=== PATIENT | female | born 1980 | race Hispanic/Latino ===

== ENCOUNTER → 2018-09-12 10:55 | Outpatient (CLI) | payer OTHER, MEDICAID, SELFPAY ==
[2018-09-12 12:52] LABS: HCG Quantitative /Beta subunit 488080 mIU/mL
== END ==
DX: O02.0 Blighted ovum and nonhydatidiform mole (principal)
CPT/HCPCS: 36415; 84702

== ENCOUNTER → 2018-09-27 14:30 | Outpatient (CLI) | payer OTHER, MEDICAID, SELFPAY ==
[2018-09-27 16:05] LABS: HCG Quantitative /Beta subunit 1195.5 mIU/mL
== END ==
PROVIDERS: Visit Provider Specialist
DX: O02.0 Blighted ovum and nonhydatidiform mole (principal)
CPT/HCPCS: 36415; 84702

== ENCOUNTER 2018-12-30 10:20 | Emergency (ER) | payer OTHER, MEDICAID, SELFPAY ==
[2018-12-30 10:34] VITALS: BP 108/70; PULSE 88; RESP 15; TEMP 36.3; O2SAT 98; BMI 21.3
--- NOTE | 2018-12-30 11:13 | DI.US.S_ITS ---
PROCEDURE: US OB <= 14 WEEKS FETUS INDICATIONS: LMP 11/27, + PREG @ HOME, BLEEDING H/O MISCARRIAGE OUTSIDE/PRIOR DATING DATA: Last menstrual period (LMP): 11/27/18. LMP-based estimated date of delivery (BIBIANA): 09/03/19. First dating scan (date and location): This examination. Estimated date of delivery (BIBIANA) from first dating scan: See below. TECHNIQUE: Real-time scanning was performed of the fetus and maternal pelvic organs, with image documentation. Endovaginal scanning was also performed to better visualize the fetus and maternal ovaries. COMPARISON: [facility], , OB <= 14 WEEKS FETUS, 09/12/2018, 10:37. FINDINGS: Embryo: Possible intrauterine gestational sac is seen with a mean gestational sac diameter measuring 0.74 cm, 5 weeks 3 days. However, no pole is detected. Measurement variability in dating: +/- 4 weeks by LMP, +/- 7 days by mean sac diameter (use before 6 weeks gestation if crown-rump length not able to be measured), +/- 5 days by crown-rump length (up to 8 weeks 6 days gestation), +/- 7 days by crown-rump length (up to 13 weeks 6 days gestation). Maternal organs: Ovaries possible right corpus luteum. Right ovarian cyst measuring 2.2 x 1.8 x 1.6 cm.. Limited images through the kidneys demonstrate no hydronephrosis. IMPRESSION: Possible intrauterine gestational sac although technically nonspecific. No pole identified. The appearance could represent early intrauterine , spontaneous however cannot exclude ectopic . Recommend followup pelvic ultrasound in 7 days. Please correlate with serial beta-hCG values. Dictated by: Jl Reynoso M.D. on 12/30/2018 at 13:29 Approved by: Jl Reynoso M.D. on 12/30/2018 at 13:32
--- NOTE | 2018-12-30 11:20 | ED.PREGNANCY ---
HPI - General Chief complaint: OB/Uterine Contractions Stated complaint: bleeding, Time Seen by Provider: 12/30/18 10:27 Source: patient and family Mode of arrival: ambulatory Limitations: no limitations History of Present Illness HPI Narrative: 38-year-old female nonsmoker at 4 weeks or so presents with episodic pelvic pain and a few episodes of light spotting. She denies any fever chills or nausea, vomiting or diarrhea. She had 2 positive tests at home over the past few days. She has previously seen Dr. Torres at our hospital for prior pregnancies. Her bleeding is quite minimal and she has not even saturated a pad MD Complaint: vaginal bleeding Onset (ago): day(s) Pain Consistency: intermittent Location: pelvis Severity: mild Quality: Aching Radiation: pelvis Relieving factors: none Exacerbating factors: none Associated symptoms: vaginal bleeding Vaginal bleeding: light Patient : Yes OB History - Current : no complications OB History - Previous Pregnancies: miscarriage care: none Related Data : 7 Para: 3 Home Medications Medication Instructions Recorded Confirmed 1 tab PO DAILY 09/10/18 vitamin,calcium,ubbkzuvh-gpvq-dhbeq acid tablet Allergies Allergy/AdvReac Type Severity Reaction Status Date / Time No Known Drug Allergies Allergy Verified 12/30/18 10:33 Review of Systems Constitutional Denies chills, Denies fever(s), Denies lethargy and Denies weakness Eyes Denies change in vision, Denies eye discharge, Denies irritation and Denies loss of vision ENT Ears, Nose, Mouth, and Throat: Denies change in voice, Denies neck pain and Denies sore throat Cardiovascular Denies chest pain, Denies irregular heart rhythm, Denies lightheadedness, Denies palpitations, Denies dyspnea, Denies dyspnea on exertion and Denies orthopnea Respiratory Denies cough, Denies dyspnea, Denies dyspnea on exertion and Denies wheezing Gastrointestinal Gastrointestinal: Denies abdominal pain, Denies change in bowel habits, Denies diarrhea, Denies nausea and Denies vomiting Genitourinary Reports abnormal vaginal bleeding, Denies hematuria, Reports pelvic pain, Denies flank pain, Denies urinary incontinence and Denies urinary urgency Musculoskeletal Denies neck pain Integumentary/Breasts Denies pruritus, Denies erythema, Denies rash and Denies wounds Neurologic Denies confusion, Denies loss of vision and Denies weakness Psychiatric Denies anxiety, Denies confusion, Denies depression, Denies homicidal ideation and Denies suicidal ideation Endocrine Denies palpitations Hematologic/Lymphatic Denies easy bruising Allergic/Immunologic Denies wheezing PMFSH - Past Medical History Medical history: Reports no medical history 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 Normocephalic. No temporal or scalp tenderness. EYES: Pupils equal round and reactive. Extraocular motions intact. No scleral icterus. No injection or drainage. ENT: Nose without bleeding, purulent drainage or septal hematoma. Throat without erythema, tonsillar hypertrophy or exudate. Uvula midline. Airway patent. NECK: Trachea midline. No JVD or lymphadenopathy. Supple, nontender, no meningeal signs. CARDIOVASCULAR: Regular rate and rhythm without murmurs, gallops, or rubs. RESPIRATORY: Clear to auscultation. Breath sounds equal bilaterally. No wheezes, rales, or rhonchi. GASTROINTESTINAL: Abdomen soft, mild suprapubic tenderness, nondistended. No hepato-splenomegaly, or palpable masses. No guarding. EXTREMITIES: No clubbing, cyanosis, or edema. No joint tenderness, effusion, or edema noted. BACK: Nontender without deformity or crepitance. No flank tenderness. NEURO: AOx3. SKIN: No rash or erythema. Initial Vital Signs Initial Vital Signs: Vital Signs Temperature 97.4 F L 12/30/18 10:34 Pulse Rate 88 12/30/18 10:34 Respiratory Rate 15 12/30/18 10:34 Blood Pressure 108/70 12/30/18 10:34 Pulse Oximetry 98 12/30/18 10:34 Course Orders Ordered: ED Orders 12/30/18 11:13 US OB <= 14 weeks fetus Stat 12/30/18 11:19 ABO RH Type Stat Basic Metabolic Panel Stat Beta HCG, Quant [HCG Quantitative] Stat Complete Blood Count AUTO DIFF Stat Vital Signs - 8 hr 12/30/18 10:34 12/30/18 13:30 Temperature 97.4 F L Pulse Rate 88 70 Respiratory Rate 15 15 Blood Pressure 108/70 Blood Pressure [Right Arm] 117/70 Pulse Oximetry 98 99 MDM - OB/Uterine Contractions Lab Data Result diagrams: 12/30/18 11:19 12/30/18 11:19 Lab Results 12/30/18 12/30/18 12/30/18 Range/Units 11:19 11:19 11:19 WBC 7.6 (4.5-11.0) X10^3/uL RBC 4.34 (4.0-5.2) X10^6/uL Hgb 11.6 L (12.0-16.0) g/dL Hct 34.8 L (36-46) % MCV 80.1 (80-100) fL MCH 26.7 (26-34) PG MCHC 33.3 (30-36) % RDW 16.2 H (11.6-14.8) % Plt Count 259 (150-400) X10^3/uL Neut % (Auto) 63.2 (50-75) % Lymph % (Auto) 28.8 (25-40) % Todd % (Auto) 6.9 (3-14) % Eos % (Auto) 0.8 L (2-4) % Baso % (Auto) 0.3 (0-2) % Neut # (Auto) 4800 (1490-6947) /uL Lymph # (Auto) 2200 (8720-4471) /uL Todd # (Auto) 500 (0-900) /uL Eos # (Auto) 100 (0-450) /uL Baso # (Auto) 0 (0-100) /uL Sodium 138 (137-145) mmol/L Potassium 3.5 (3.4-5.1) mmol/L Chloride 105 (98-107) mmol/L Carbon Dioxide 25 (22-32) mmol/L BUN 13 (7-17) mg/dL Creatinine 0.70 (0.52-1.04) mg/dL Estimated GFR > 60.0 (>60) mL/min BUN/Creatinine Ratio 18.6 (6-22) Glucose 97 (70-100) mg/dL Calcium 9.6 (8.4-10.2) mg/dL HCG, Quant 5114.7 mIU/mL Blood Type A Positive Point of Care Testing Test Results Positive Urine Dip Bedside Urine Glucose Negative Bedside Urine Bilirubin - Negative Bedside Urine Ketone - Negative Urine Specific [place] 1.020 Bedside Urine Occult Blood +/- Bedside Urine pH 6.5 Bedside Urine Protein - Negative Bedside Urine Urobilinogen - Negative Bedside Urine Nitrite - Negative Bedside Urine Leukocytes - Negative Esterase Imaging Data US - abdomen: Radiologist's impression: [address] [address] Ultrasound Report Signed Patient: Amparo ArnoldMR#: [id number] : 1980Acct:[id number] Age/Sex: 38 / FDate of Service: 12/30/18 Loc: ED Accession Number: [id number] Procedure: US OB <= 14 weeks fetus Ordering Provider: Noble Zamora D.O. PROCEDURE: US OB <= 14 WEEKS FETUS INDICATIONS: LMP 11/27, + PREG @ HOME, BLEEDING H/O MISCARRIAGE OUTSIDE/PRIOR DATING DATA: Last menstrual period (LMP): 11/27/18. LMP-based estimated date of delivery (BIBIANA): 09/03/19. First dating scan (date and location): This examination. Estimated date of delivery (BIBIANA) from first dating scan: See below. TECHNIQUE: Real-time scanning was performed of the fetus and maternal pelvic organs, with image documentation. Endovaginal scanning was also performed to better visualize the fetus and maternal ovaries. COMPARISON: [facility], US, US OB <= 14 WEEKS FETUS, 09/12/2018, 10:37. FINDINGS: Embryo: Possible intrauterine gestational sac is seen with a mean gestational sac diameter measuring 0.74 cm, 5 weeks 3 days. However, no pole is detected. Measurement variability in dating: +/- 4 weeks by LMP, +/- 7 days by mean sac diameter (use before 6 weeks gestation if crown-rump length not able to be measured), +/- 5 days by crown-rump length (up to 8 weeks 6 days gestation), +/- 7 days by crown-rump length (up to 13 weeks 6 days gestation). Maternal organs: Ovaries possible right corpus luteum. Right ovarian cyst measuring 2.2 x 1.8 x 1.6 cm.. Limited images through the kidneys demonstrate no hydronephrosis. IMPRESSION: Possible intrauterine gestational sac although technically nonspecific. No pole identified. The appearance could represent early intrauterine , spontaneous however cannot exclude ectopic . Recommend followup pelvic ultrasound in 7 days. Please correlate with serial beta-hCG values. Dictated by: Jl Reynoso M.D. on 12/30/2018 at 13:29 Approved by: Jl Reynoso M.D. on 12/30/2018 at 13:32 Discharge Plan Departure Patient Disposition: Home Clinical Impression: Hemorrhage, , early Discharge Date/Time: 12/30/18 14:22 Interventions: ED Discharge Assessment Last Done: 12/30/18 14:21 Instructions: DI for -- Discomforts and Remedies Activity Restrictions/Additional Instructions: *You have been diagnosed with [ and pelvic pain in early ] *What to do: *Take medications as directed *Follow up with Dr. Torres in 2-3 days, call for an appointment. Let them know you were seen in the Emergency Department and that we ask that you be seen in follow up *Return to ER if you should have any new, worsening or concerning symptoms, such as [increased bleeding, increased pain or fever over 101 F] Prescriptions: No Action prenat.vits,vincent,ato-rtdp-wvrsp tablet 1 tab PO DAILY RF: 0 Referrals: Yomi Torres MD [Physician] -
[2018-12-30 11:30] LABS: Add Manual Diff / Slide Review NO; Basophils Absolute Auto 0 /uL (0-100); Basophils Percent Auto 0.3 % (0-2); Eosinophils Absolute Auto 100 /uL (0-450); Eosinophils Percent Auto 0.8 % (2-4); Hematocrit 34.8 % (36-46); Hemoglobin 11.6 g/dL (12.0-16.0); Lymphocytes Absolute Auto 2200 /uL (1100-4500); Lymphocytes Percent Auto 28.8 % (25-40); Mean Corpuscular HGB Conc 33.3 % (30-36); Mean Corpuscular Hemoglobin 26.7 PG (26-34); Mean Corpuscular Volume 80.1 fL (80-100); Monocytes Absolute Auto 500 /uL (0-900); Monocytes Percent Auto 6.9 % (3-14); Neutrophils Absolute Auto 4800 /uL (1500-7000); Neutrophils Percent Auto 63.2 % (50-75); Platelet Count 259 X10^3/uL (150-400); Red Blood Cell Count 4.34 X10^6/uL (4.0-5.2); Red Cell Distribution Width 16.2 % (11.6-14.8); White Blood Cell Count 7.6 X10^3/uL (4.5-11.0)
[2018-12-30 11:47] LABS: BUN Creatinine Ratio 18.6 (6-22); Blood Urea Nitrogen 13 mg/dL (7-17); Calcium 9.6 mg/dL (8.4-10.2); Carbon Dioxide 25 mmol/L (22-32); Chloride 105 mmol/L (98-107); Estimated Glomerular Filt Rate > 60.0 mL/min (>60); Glucose 97 mg/dL (70-100); HEMOLYSIS < 15 (0-50); Potassium 3.5 mmol/L (3.4-5.1); Sodium 138 mmol/L (137-145)
[2018-12-30 12:03] LABS: HCG Quantitative /Beta subunit 5114.7 mIU/mL
[2018-12-30 13:30] VITALS: BP 117/70; PULSE 70; RESP 15; O2SAT 99
--- NOTE | 2018-12-30 13:57 | ED_ITS ---
HPI - General Chief complaint: OB/Uterine Contractions Stated complaint: bleeding, Time Seen by Provider: 12/30/18 10:27 Source: patient and family Mode of arrival: ambulatory Limitations: no limitations History of Present Illness HPI Narrative: 38-year-old female nonsmoker at 4 weeks or so presents with episodic pelvic pain and a few episodes of light spotting. She denies any fever chills or nausea, vomiting or diarrhea. She had 2 positive tests at home over the past few days. She has previously seen Dr. Torres at our hospital for prior pregnancies. Her bleeding is quite minimal and she has not even saturated a pad MD Complaint: vaginal bleeding Onset (ago): day(s) Pain Consistency: intermittent Location: pelvis Severity: mild Quality: Aching Radiation: pelvis Relieving factors: none Exacerbating factors: none Associated symptoms: vaginal bleeding Vaginal bleeding: light Patient : Yes OB History - Current : no complications OB History - Previous Pregnancies: miscarriage care: none Related Data : 7 Para: 3 Home Medications Medication Instructions Recorded Confirmed 1 tab PO DAILY 09/10/18 vitamin,calcium,gphkxuej-pile-rplax acid tablet Allergies Allergy/AdvReac Type Severity Reaction Status Date / Time No Known Drug Allergies Allergy Verified 12/30/18 10:33 Review of Systems Constitutional Denies chills, Denies fever(s), Denies lethargy and Denies weakness Eyes Denies change in vision, Denies eye discharge, Denies irritation and Denies loss of vision ENT Ears, Nose, Mouth, and Throat: Denies change in voice, Denies neck pain and Denies sore throat Cardiovascular Denies chest pain, Denies irregular heart rhythm, Denies lightheadedness, Denies palpitations, Denies dyspnea, Denies dyspnea on exertion and Denies orthopnea Respiratory Denies cough, Denies dyspnea, Denies dyspnea on exertion and Denies wheezing Gastrointestinal Gastrointestinal: Denies abdominal pain, Denies change in bowel habits, Denies diarrhea, Denies nausea and Denies vomiting Genitourinary Reports abnormal vaginal bleeding, Denies hematuria, Reports pelvic pain, Denies flank pain, Denies urinary incontinence and Denies urinary urgency Musculoskeletal Denies neck pain Integumentary/Breasts Denies pruritus, Denies erythema, Denies rash and Denies wounds Neurologic Denies confusion, Denies loss of vision and Denies weakness Psychiatric Denies anxiety, Denies confusion, Denies depression, Denies homicidal ideation and Denies suicidal ideation Endocrine Denies palpitations Hematologic/Lymphatic Denies easy bruising Allergic/Immunologic Denies wheezing PMFSH - Past Medical History Medical history: Reports no medical history 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 Normocephalic. No temporal or scalp tenderness. EYES: Pupils equal round and reactive. Extraocular motions intact. No scleral icterus. No injection or drainage. ENT: Nose without bleeding, purulent drainage or septal hematoma. Throat without erythema, tonsillar hypertrophy or exudate. Uvula midline. Airway patent. NECK: Trachea midline. No JVD or lymphadenopathy. Supple, nontender, no meningeal signs. CARDIOVASCULAR: Regular rate and rhythm without murmurs, gallops, or rubs. RESPIRATORY: Clear to auscultation. Breath sounds equal bilaterally. No wheezes, rales, or rhonchi. GASTROINTESTINAL: Abdomen soft, mild suprapubic tenderness, nondistended. No hepato-splenomegaly, or palpable masses. No guarding. EXTREMITIES: No clubbing, cyanosis, or edema. No joint tenderness, effusion, or edema noted. BACK: Nontender without deformity or crepitance. No flank tenderness. NEURO: AOx3. SKIN: No rash or erythema. Initial Vital Signs Initial Vital Signs: Vital Signs Temperature 97.4 F L 12/30/18 10:34 Pulse Rate 88 12/30/18 10:34 Respiratory Rate 15 12/30/18 10:34 Blood Pressure 108/70 12/30/18 10:34 Pulse Oximetry 98 12/30/18 10:34 Course Orders Ordered: ED Orders 12/30/18 11:13 US OB <= 14 weeks fetus Stat 12/30/18 11:19 ABO RH Type Stat Basic Metabolic Panel Stat Beta HCG, Quant [HCG Quantitative] Stat Complete Blood Count AUTO DIFF Stat Vital Signs - 8 hr 12/30/18 10:34 12/30/18 13:30 Temperature 97.4 F L Pulse Rate 88 70 Respiratory Rate 15 15 Blood Pressure 108/70 Blood Pressure [Right Arm] 117/70 Pulse Oximetry 98 99 MDM - OB/Uterine Contractions Lab Data Result diagrams: 12/30/18 11:19 12/30/18 11:19 Lab Results 12/30/18 12/30/18 12/30/18 Range/Units 11:19 11:19 11:19 WBC 7.6 (4.5-11.0) X10^3/uL RBC 4.34 (4.0-5.2) X10^6/uL Hgb 11.6 L (12.0-16.0) g/dL Hct 34.8 L (36-46) % MCV 80.1 (80-100) fL MCH 26.7 (26-34) PG MCHC 33.3 (30-36) % RDW 16.2 H (11.6-14.8) % Plt Count 259 (150-400) X10^3/uL Neut % (Auto) 63.2 (50-75) % Lymph % (Auto) 28.8 (25-40) % Terry % (Auto) 6.9 (3-14) % Eos % (Auto) 0.8 L (2-4) % Baso % (Auto) 0.3 (0-2) % Neut # (Auto) 4800 (4783-2488) /uL Lymph # (Auto) 2200 (1708-9215) /uL Terry # (Auto) 500 (0-900) /uL Eos # (Auto) 100 (0-450) /uL Baso # (Auto) 0 (0-100) /uL Sodium 138 (137-145) mmol/L Potassium 3.5 (3.4-5.1) mmol/L Chloride 105 (98-107) mmol/L Carbon Dioxide 25 (22-32) mmol/L BUN 13 (7-17) mg/dL Creatinine 0.70 (0.52-1.04) mg/dL Estimated GFR > 60.0 (>60) mL/min BUN/Creatinine Ratio 18.6 (6-22) Glucose 97 (70-100) mg/dL Calcium 9.6 (8.4-10.2) mg/dL HCG, Quant 5114.7 mIU/mL Blood Type A Positive Point of Care Testing Test Results Positive Urine Dip Bedside Urine Glucose Negative Bedside Urine Bilirubin - Negative Bedside Urine Ketone - Negative Urine Specific [place] 1.020 Bedside Urine Occult Blood +/- Bedside Urine pH 6.5 Bedside Urine Protein - Negative Bedside Urine Urobilinogen - Negative Bedside Urine Nitrite - Negative Bedside Urine Leukocytes - Negative Esterase Imaging Data US - abdomen: Radiologist's impression: [address] [address] Ultrasound Report Signed Patient: Amparo ArnoldMR#: [id number] : 1980Acct:[id number] Age/Sex: 38 / FDate of Service: 12/30/18 Loc: ED Accession Number: [id number] Procedure: US OB <= 14 weeks fetus Ordering Provider: Noble Zamora D.O. PROCEDURE: US OB <= 14 WEEKS FETUS INDICATIONS: LMP 11/27, + PREG @ HOME, BLEEDING H/O MISCARRIAGE OUTSIDE/PRIOR DATING DATA: Last menstrual period (LMP): 11/27/18. LMP-based estimated date of delivery (BIBIANA): 09/03/19. First dating scan (date and location): This examination. Estimated date of delivery (BIBIANA) from first dating scan: See below. TECHNIQUE: Real-time scanning was performed of the fetus and maternal pelvic organs, with image documentation. Endovaginal scanning was also performed to better visualize the fetus and maternal ovaries. COMPARISON: [facility], US, US OB <= 14 WEEKS FETUS, 09/12/2018, 10:37. FINDINGS: Embryo: Possible intrauterine gestational sac is seen with a mean gestational sac diameter measuring 0.74 cm, 5 weeks 3 days. However, no pole is detected. Measurement variability in dating: +/- 4 weeks by LMP, +/- 7 days by mean sac diameter (use before 6 weeks gestation if crown-rump length not able to be measured), +/- 5 days by crown-rump length (up to 8 weeks 6 days gestation), +/- 7 days by crown-rump length (up to 13 weeks 6 days gestation). Maternal organs: Ovaries possible right corpus luteum. Right ovarian cyst measuring 2.2 x 1.8 x 1.6 cm.. Limited images through the kidneys demonstrate no hydronephrosis. IMPRESSION: Possible intrauterine gestational sac although technically nonspecific. No pole identified. The appearance could represent early intrauterine , spontaneous however cannot exclude ectopic . Recommend followup pelvic ultrasound in 7 days. Please correlate with serial beta-hCG values. Dictated by: Jl Reynoso M.D. on 12/30/2018 at 13:29 Approved by: Jl Reynoso M.D. on 12/30/2018 at 13:32 Discharge Plan Departure Patient Disposition: Home Clinical Impression: Hemorrhage, , early Discharge Date/Time: 12/30/18 14:22 Interventions: ED Discharge Assessment Last Done: 12/30/18 14:21 Instructions: DI for -- Discomforts and Remedies Activity Restrictions/Additional Instructions: *You have been diagnosed with [ and pelvic pain in early ] *What to do: *Take medications as directed *Follow up with Dr. Torres in 2-3 days, call for an appointment. Let them kn ow you were seen in the Emergency Department and that we ask that you be seen in follow up *Return to ER if you should have any new, worsening or concerning symptoms, such as [increased bleeding, increased pain or fever over 101 F] Prescriptions: No Action prenat.vits,vincent,tim-ywfv-lxtjd tablet 1 tab PO DAILY RF: 0 Referrals: Yomi Torres MD [Physician] -
== END 2018-12-30 14:22 | disposition home or self-care (01) ==
PROVIDERS: Emergency Provider Emergency Medicine
DX: O20.9 Hemorrhage in early pregnancy, unspecified (principal)
CPT/HCPCS: 36415; 76801; 76817; 80048; 81003; 81025; 84702; 85025; 86900; 86901; 99283; 99284

== ENCOUNTER → 2019-01-30 10:55 | Outpatient (CLI) | payer OTHER, MEDICAID, SELFPAY ==
[2019-01-30 11:22] LABS: Appearance Urine UA CLEAR; Bilirubin Urine UA NEGATIVE (NEGATIVE); Color Urine UA YELLOW; Glucose Urine UA NEGATIVE (Negative); Ketones Urine UA NEGATIVE (NEGATIVE); Leukocyte Esterase Urine UA NEGATIVE (NEGATIVE); Nitrite Urine UA NEGATIVE (Negative); Occult Blood Urine UA NEGATIVE (Negative); Protein Urine UA NEGATIVE (Negative); Urobilinogen Urine UA 0.2 E.U./dL (0.2)
[2019-01-30 11:30] LABS: Add Manual Diff / Slide Review NO; Basophils Absolute Auto 0 /uL (0-100); Basophils Percent Auto 0.3 % (0-2); Eosinophils Absolute Auto 0 /uL (0-450); Eosinophils Percent Auto 0.4 % (2-4); Hematocrit 35.3 % (36-46); Lymphocytes Absolute Auto 2400 /uL (1100-4500); Lymphocytes Percent Auto 30.2 % (25-40); Mean Corpuscular Hemoglobin 27.2 PG (26-34); Mean Corpuscular Volume 79.9 fL (80-100); Monocytes Absolute Auto 400 /uL (0-900); Monocytes Percent Auto 4.9 % (3-14); Neutrophils Absolute Auto 5200 /uL (1500-7000); Neutrophils Percent Auto 64.2 % (50-75); Platelet Count 247 X10^3/uL (150-400); Red Blood Cell Count 4.42 X10^6/uL (4.0-5.2); Red Cell Distribution Width 17.4 % (11.6-14.8); White Blood Cell Count 8.1 X10^3/uL (4.5-11.0)
[2019-01-30 11:42] LABS: Hemoglobin A1C% w Est Avg Glu 5.2 % (4.0-6.0)
[2019-01-30 12:05] LABS: Glucose 89 mg/dL (70-100)
[2019-01-30 15:39] LABS: HIV 1 and 2 Antibody NEGATIVE (NEGATIVE); Hep C Virus Ab w/Reflex Quant NEGATIVE s/c (NEGATIVE); Hepatitis B Surface Antigen NEGATIVE s/c (NEGATIVE)
[2019-01-30 15:40] LABS: Rubella Antibody IgG 30.6 IU/mL (>15)
[2019-02-02 13:26] LABS: RPR Screen Nonreactive (Nonreactive)
== END ==
DX: O09.529 Supervision of elderly multigravida, unspecified trimester (principal)
CPT/HCPCS: 36415; 80055; 81003; 82947; 83036; 86703; 86787; 86803; 86850; 86900; 86901; 87086

== ENCOUNTER → 2019-02-24 09:47 | Outpatient (CLI) | payer OTHER, MEDICAID, SELFPAY ==
[2019-02-26 14:48] LABS: Sequential Screen 1st Trimeste FINAL PENDING
== END ==
DX: Z34.81 Encounter for supervision of other normal pregnancy, first trimester (principal); Z3A.12 12 weeks gestation of pregnancy
CPT/HCPCS: 36415; 84163; 84702

== ENCOUNTER → 2019-03-25 08:50 | Outpatient (CLI) | payer OTHER, MEDICAID, SELFPAY ==
[2019-03-27 15:39] LABS: Sequential Screen 2nd Trimeste SCREEN NEGATIVE
== END ==
DX: Z34.82 Encounter for supervision of other normal pregnancy, second trimester (principal)
CPT/HCPCS: 36415; 82105; 82677; 84163; 84702; 86336

== ENCOUNTER → 2019-07-29 14:10 | Outpatient (CLI) | payer OTHER, MEDICAID, SELFPAY ==
[2019-07-31 10:38] LABS: Strep Grp B PCR NEG for Grp B Strep
== END ==
DX: Z34.83 Encounter for supervision of other normal pregnancy, third trimester (principal)
CPT/HCPCS: 87653

== ENCOUNTER 2019-08-19 13:28 | Inpatient (IN) | payer OTHER, MEDICAID, SELFPAY ==
--- NOTE | 2019-08-19 16:37 | PM.OBHP.1 ---
OB HPI Date/Time Date of admission: 08/19/19 Date Patient Seen: 08/19/19 Time Patient Seen: 16:30 History of Present Condition Chief complaint: OBSERVATION : 7 Para: 3 Estimated Date of Delivery: 09/03/18 Estimated Gestational Age (weeks): 37 Narrative: Amparo Stack is a 39 year old @37+6 admitted in early labor. The patient lives in [place], and reports that she began having contractions at 3 AM, prompting her and her to come to [place] She denies dFM, VB, or LOF, and denies any other complaints obstetrical or otherwise. She reports that her has been uncomplicated. She has a history of 3x term uncomplicated NSVDs, with children ages 10, 7 and 3, and the last the largest at 7#14. She reports 3 miscarriages, though the last was a molar per records review. She denies any other contributory staff respiratory therapist, medical, surgical, or family history, allergies, or medications. History of Present care: good care Dating criteria: LMP confirmed by 1st trimester US Ultrasounds: normal mid trimester US Obstetrical complications: none Medical complications: none Preadmission Labs Blood type: A (+) positive -: Antibody screen: negative, GBS status: negative, HBsAG: negative, HIV: negative and RPR/VDLR: negative -: Chlamydia screen: not detected and Gonorrhea screen: not detected -: Rubella: immune and Varicella: immune PAP: Abnormal (ASCUS, HPV +) Urine: negative 1 hr GTT: 133 Prior (ies) History: G1: SAB, 07/2004, suction D&C G2: , 07/24/2005, 40 wks, F, 7#2, uncomplicated G3: 2008, SAB, suction D&C G4: 10/10/2011, , 40 wks, 6#14, F, uncomplicated G5: 02/26/2016, , 40 wks, F, 7#14, F, uncomplicated G6: Molar , suction D&C Evaluation Evaluation Baseline heart rate: 135 Variability: Average (6-10) monitor accelerations: Present monitor decelerations: Early Contraction Frequency (minutes): 5 Uterine Contraction Intensity: Moderate Category of Tracing: I Cervical dilation (cm): 5 Cervical effacement (%): 80 station: -3 PFSH Medical History (Updated 08/19/19 @ 17:07 by Celina Morocho MD) Molar (Acute) Vaginal delivery (Acute) Surgical History (Updated 08/19/19 @ 17:08 by Celina Morocho MD) H/O dilation and curettage (Acute) Social History Smoking Status: Never smoker Meds Home Medications and Allergies Home Medications Medication Instructions Recorded Confirmed Type prenat.vits,vincent,aba-mcsv-zmphk 1 tab PO DAILY 09/10/18 01/14/19 History ondansetron HCl 4 mg tablet 4 mg PO BID-TID PRN #30 tab 01/30/19 Rx fluconazole 150 mg tablet 150 mg PO DAILY #1 tab 04/22/19 Rx omeprazole 20 mg capsule,delayed 20 mg PO DAILY #30 cap 07/21/19 Rx release Allergies Allergy/AdvReac Type Severity Reaction Status Date / Time No Known Drug Allergies Allergy Verified 01/06/19 08:20 Review of Systems Constitutional Constitutional: Reports system reviewed and no additional complaints, except as documented Cardiovascular Cardiovascular: Reports system reviewed; no additional complaints, except as documented Respiratory Respiratory: Reports system reviewed and no additional complaints, except as documented Gastrointestinal Gastrointestinal: Reports as per HPI Genitourinary Genitourinary: Reports as per HPI Musculoskeletal Musculoskeletal: Reports system reviewed; no additional complaints, except as documented Exam Vital Signs (past 8 hours): 110/70, 79 Const General: cooperative, healthy appearing and comfortable Resp Effort & Inspection: normal respiratory effort Auscultation: clear to auscultation bilaterally Cardio Rate: regular rate Rhythm: regular rhythm GI Palpation: soft and No tender Skin General: no rashes or lesions noted Assessment and Plan Assessment and Plan Assessment and Plan narrative: This patient presents in labor, and has gone from 1cm to 5.5cm dilated spontaneously in 4 hours. The patient will be admitted in labor, and can get her epidural when desired. - Ambulation encouraged - HLIV - intermittent monitoring per protocol - clear liquid diet - CBC, T&S
[2019-08-19] MEDS: LACTATED RINGERS 1,000 ML 100 ML IV ×2 (16:50→18:05)
[2019-08-19 17:14] LABS: Add Manual Diff / Slide Review NO; Basophils Absolute Auto 0 /uL (0-100); Basophils Percent Auto 0.2 % (0-2); Eosinophils Absolute Auto 0 /uL (0-450); Eosinophils Percent Auto 0.1 % (2-4); Hematocrit 37.6 % (36-46); Hemoglobin 12.9 g/dL (12.0-16.0); Lymphocytes Absolute Auto 2400 /uL (1100-4500); Lymphocytes Percent Auto 23.1 % (25-40); Mean Corpuscular HGB Conc 34.2 % (30-36); Mean Corpuscular Hemoglobin 30.6 PG (26-34); Mean Corpuscular Volume 89.6 fL (80-100); Monocytes Absolute Auto 700 /uL (0-900); Monocytes Percent Auto 6.4 % (3-14); Neutrophils Absolute Auto 7400 /uL (1500-7000); Neutrophils Percent Auto 70.2 % (50-75); Platelet Count 226 X10^3/uL (150-400); Red Cell Distribution Width 14.2 % (11.6-14.8); White Blood Cell Count 10.5 X10^3/uL (4.5-11.0)
--- NOTE | 2019-08-19 18:15 | PM.OBPNLAB ---
Date/Time Date Patient Seen: 08/19/19 Pain Control Pain control: epidural Comments: patient to get epidural Pelvic Exam Dilation (cm): 5 Effacement (%): 80 station: -3 Amniotic membrane status: Intact Contractions Contraction frequency (min): 7 Contraction duration (min): 1 Contraction pattern: Regular Contraction intensity: Moderate Status status: Category l Heart Rate Baseline: 120 Monitor Accelerations: Present Monitor Decelerations: Absent Monitor Variability: Moderate Assessment and Plan Comments: Patient juno, has made change to 5.5cm. For epidural when floor circumstances allow.
[2019-08-19] MEDS: FENT 2MCG/ML BUPIV 0.125% EPI 200 MCG/100 ML PLAST..BAG 6 MCG EPIDURAL (18:20)
--- NOTE | 2019-08-19 19:56 | PM.OBPNLAB ---
Date/Time Date Patient Seen: 08/19/19 Time Patient Seen: 19:23 Pain Control Pain control: epidural Comments: 128/62, HR 96 Pelvic Exam Dilation (cm): 5 Effacement (%): 80 station: -1 Amniotic membrane status: Ruptured (AROM, clear fluid) Contractions Contractions on admission: regular Contraction frequency (min): 5 Contraction duration (min): 1 Contraction pattern: Regular Contraction intensity: Moderate Status status: Category l Heart Rate Baseline: 125 Monitor Accelerations: Present Monitor Decelerations: Absent Monitor Variability: Moderate Comments: +scalp stim Assessment and Plan Assessment: active labor Plan: continuous present management
[2019-08-19] MEDS: OXYTOCIN PREMIX 30 UNIT/500 ML PLAST..BAG IV (22:00)
[2019-08-19 22:04] VITALS: BP 110/70
--- NOTE | 2019-08-19 22:18 | PM.OBPRVD ---
Labor & Delivery Delivery date: 08/19/19 Intrapartal events: Acceleration and Deceleration Delivery augmentation: rupture of membranes Delivery monitor: external FHT Route of delivery: L&D Laceration Description: None Estimated blood loss (mL): 150 Anesthesia type: Epidural Narrative: This patient presented in early labor and progressed from 1cm to 5cm unaugmented. She was AROMed for clear fluid and progressed to fully dilated, and delivered of a healthy baby boy after a short pushing stage, body cord x1 reduced after delivery, apgars 9+9, weight 6#8. There were no intrapartum or immediate complications. Plan for aftercare: Routine care.
--- NOTE | 2019-08-19 22:51 | PATH_ITS ---
[facility] Accession Number: [id number] . 01 Material submitted: . placenta - PLACENTA . 02 Diagnosis: Mckenzie Placenta (354 grams), Spontaneous Vaginal Delivery: membranes with no evidence of chorioamnionitis. Three vessel umbilical cord with no evidence of funisitis. Placental disc with villous maturity appropriate for term gestation. MRV 08/25/2019 1535 Local . 02 Electronically signed: . Salomon Perez MD, PhD, Pathologist NPI- [id number] . 01 Gross description: . Received in formalin is an intact placenta which includes the placental disc (354 grams, 15.5 x 13.3 x 3.0 cm), membranes and umbilical cord (length-45.7 cm, diameter-0.8 x 0.8 cm). The membranes are ruptured 10.2 cm from the edge of the placenta and are thin and semi-translucent. The umbilical cord is attached 2.7 cm from the edge of the placenta and contains three vessels. The surface is smooth and shiny and contains multiple read-white opacities (1.1 x 0.7 cm-3.2 x 2.5 cm) involving approximately 10% of the surface. No evidence of meconium is identified. The maternal surface is read with normal cotyledon formation. The placental body is spongy with no nodules, masses or lesions identified. Section code: (A1, A2) edge of placenta with membranes; (A3) umbilical cord, new accounts banking representative serial sections; (A4-A5, A6-A7, A8-A9) placenta, three bisected full-thickness cross-sections. ([id number]) /MRV 08/22/2019 1447 Local . 02 Pathologist provided ICD-10: Z37.0 . 02 CPT . 232840 Performed at: 01 [facility] [address] [place] [address], [place], [place] [id number] MD Antelmo Clifton MD Phone: [phone] Performed at: 02 [facility] [address] [place], [place] [id number] MD Gisela Dowd MD Phone: [phone]
[2019-08-20] MEDS: IBUPROFEN 600 MG TABLET PO ×3 (01:23→14:52)
[2019-08-20] MEDS: DOCUSATE 100 MG CAPSULE PO (08:14)
--- NOTE | 2019-08-20 10:58 | P.PNOB_ITS ---
Subjective - OB Subjective Patient comments: no complaints Shannon baby status: doing well Shannon feeding status: exclusively breast feeding Narrative: This patient is a 39yo now P4, PPD#1 s/p uncomplicated after presenting in spontaneous labor. The patient reports feeling well today with no complaints, reports moderate lochia, no pain, no THURMAN, no visual changes, chest pain, fevers/chills, or any other complaints. Patient is tolerating PO, ambulating, voiding. Date Patient Seen: 08/20/19 Time Patient Seen: 10:59 Exam Vital Signs (past 8 hours): 90s-110s/50s, HR 60s-80s, T 36.6 Narrative Exam Narrative: Patient resting in bed with baby. Const General: cooperative, healthy appearing and comfortable Resp Effort & Inspection: normal respiratory effort Auscultation: clear to auscultation bilaterally Cardio Palpation: normal PMI Rate: regular rate Rhythm: regular rhythm GI Palpation: soft and No tender Other: Fundus firm, well below u. Objective Labs Result Diagrams: 08/19/19 16:45 Labs: Laboratory Results - last 24 hr 08/19/19 08/19/19 16:45 16:45 WBC 10.5 RBC 4.20 Hgb 12.9 Hct 37.6 MCV 89.6 MCH 30.6 MCHC 34.2 RDW 14.2 Plt Count 226 Neut % (Auto) 70.2 Lymph % (Auto) 23.1 L [place] % (Auto) 6.4 Eos % (Auto) 0.1 L Baso % (Auto) 0.2 Neut # (Auto) 7400 H Lymph # (Auto) 2400 [place] # (Auto) 700 Eos # (Auto) 0 Baso # (Auto) 0 Blood Type A Positive Antibody Screen Negative Assessment & Plan Plan day: 1 plan OB: routine care, discharge home and follow up 6 weeks Comments: This patient had an uncomplicated labor and recovery after presenting in spontaneous labor, having a <10min 2nd stage, and delivering over an intact perineum with <200ccs EBL. The patient is meeting goals, feels well, and strongly desires discharge this evening. We discussed care, precautions, and reasons for return, along with options for follow up. The patient vocalized understanding. Time Spent With Patient Time: Total time spent is greater than 50% in coordination of care (as documented) at patient's floor/unit and/or counseling patient: Time with patient: 15-24 minutes
--- NOTE | 2019-08-20 11:07 | PM.OBDS.1 ---
Discharge Providers Provider Date of admission: 08/19/19 13:28 Discharge Date: 08/20/19 Consults: 08/20/19 22:17 Consult to Geomorphology Teacher Routine Comment: Discharge provider: Celina Morocho MD Summary Hospital Course Date Patient Seen: 08/20/19 Time Patient Seen: 11:07 Procedures: Vaginal delivery Hospital Course: This patient is a 39-year-old now para 4 who presented in early spontaneous labor. The patient progressed spontaneously into active labor, was augmented with AROM for clear fluid, and delivered spontaneously shortly thereafter. The patient had a 2nd stage under 10 minutes, and delivered over an intact perineum with no complications. There were no intrapartum or complications. On day 1, the patient strongly desired discharge home, and precautions were reiterated. The patient vocalized understanding and was discharged home with routine follow-up. Peripartum Data Delivery Method: Natural Vaginal Laceration description: None complications: none [place] Denny: Gender: Male (Apgars 9/9, weight 6 lb 8 oz) Disposition of : home Status at Discharge Cognitive/behavioral status at discharge: oriented Overall status at discharge: patient is progressing back to baseline Time Spent with Patient Time attestation: Total time spent providing and/or coordinating discharge services: Time spent: Less than 30 minutes Objective Labs Result Diagrams: 08/19/19 16:45 Labs: Laboratory Results - last 24 hr 08/19/19 08/19/19 16:45 16:45 WBC 10.5 RBC 4.20 Hgb 12.9 Hct 37.6 MCV 89.6 MCH 30.6 MCHC 34.2 RDW 14.2 Plt Count 226 Neut % (Auto) 70.2 Lymph % (Auto) 23.1 L [place] % (Auto) 6.4 Eos % (Auto) 0.1 L Baso % (Auto) 0.2 Neut # (Auto) 7400 H Lymph # (Auto) 2400 [place] # (Auto) 700 Eos # (Auto) 0 Baso # (Auto) 0 Blood Type A Positive Antibody Screen Negative Exam Vital Signs (past 8 hours): See day of discharge progress note Discharge Plan Discharge Plan Patient Disposition: Home Discharge orders & Medications Prescriptions: Continued prenat.vits,vincent,njv-ohyy-rgihd tablet 1 tab PO DAILY RF: 0 fluconazole [Diflucan] 150 mg tablet 150 mg PO DAILY Qty: 1 RF: 0 omeprazole 20 mg capsule,delayed release(DR/EC) 20 mg PO DAILY Qty: 30 RF: 3 ondansetron HCl [Zofran] 4 mg tablet 4 mg PO BID-TID PRN (Reason: nausea and vomiting) Qty: 30 RF: 2 Follow up/Referrals: Yomi Torres MD [Physician] - 6 Weeks ( check- please call Dr. Torres office to schedule your follow up appt for 4-6 weeks. Ask for an appt in [place]. [phone]) Diet/Activity/Treatments Diet: Regular Activity: Nothing in the vagina for 6 weeks. Avoid heavy lifting for 6 weeks. If you have increasing bleeding, pain, fevers, chills, dizziness, THURMAN, nausea, visual symptoms, or any other complaints, call or come to the ED. Visit Report/Discharge Packet Instructions: DI for Labor and Delivery, Vaginal Stand Alone Forms: Discharge: Care Discharge Data Attending Provider: Ymoi Torres Admit Date/Time: 08/19/19 13:28
[2019-08-20 12:53] VITALS: BP 110/70
== END 2019-08-20 15:23 | disposition home or self-care (01) | DRG 807 ==
PROVIDERS: Obstetrics & Gynecology
DX: O69.89X0 Labor and delivery complicated by other cord complications, not applicable or unspecified (principal); Z37.0 Single live birth; Z3A.37 37 weeks gestation of pregnancy
CPT/HCPCS: 01967; 59050; 59400; 59409; 76815; 85025; 86850; 86900; 86901; G0378; G0379; J2590